=== PATIENT | male | born 1980 | race Caucasian/White ===

== ENCOUNTER 2017-09-22 12:38 | Inpatient (IN) ==
--- NOTE | 2017-09-22 13:06 | Emergency Department Note ---
Disposition Clinical Impression: Suicidal ideation Disposition: Admitted As Inpatient Condition: Fair Referrals: NONE,PCP [Primary Care Provider] - Forms: ED Satisfaction Letter Time of Disposition: 15:00 Psych HPI - General Chief Complaint: ED Psychiatric Symptoms Stated Complaint: SI Time Seen by Provider: 09/22/17 12:50 Source: patient Mode of arrival: ambulatory Nursing Notes Reviewed: Yes Vital Signs Reviewed: Yes - History of Present Illness Pt complaint: suicidal ideation, feels depressed Onset (ago): day(s) Duration: constant History of similar episodes: Yes Improves with: none Worsens with: none Context: not taking psychiatric medications Alleged intoxication: No Associated Psychiatric Symptoms: depression, suicidal ideation Associated symptoms: Reports: denies other symptoms Traumatic symptoms: denies traumatic injury Treatments prior to arrival: none Self harm or harm to others: admits thoughts of self harm, has plan - Related Data Home Medications Medication Instructions Recorded Confirmed Valsartan/Hydrochlorothiazide 1 tab PO DAILY 06/26/17 06/26/17 [Diovan Hct 160-25 mg Tablet] Previous Rx's Medication Instructions Recorded FLUoxetine HCl [Prozac] 20 mg PO DAILY #30 06/28/17 hydrOXYzine pamoate [HydrOXYzine 25 mg PO TID PRN #30 06/28/17 Pamoate] traZODone [TraZODone] 50 mg PO HS PRN #30 tab 06/28/17 Allergies Allergy/AdvReac Type Severity Reaction Status Date / Time No Known Allergies Allergy Verified 06/26/17 01:05 All systems ED: reviewed and negative except as stated. Constitutional: Reports: as per HPI Eyes: Reports: as per HPI ENT ED: Reports: as per HPI Cardiovascular: Reports: as per HPI Respiratory: Reports: as per HPI Gastrointestinal: Reports: as per HPI Genitourinary: Reports: as per HPI Musculoskeletal: Reports: as per HPI Integumentary: Reports: as per HPI Neurological: Reports: as per HPI Psychiatric: Reports: depression, suicidal thoughts Endocrine: Reports: as per HPI Hematological/Lymphatic: Reports: as per HPI Allergic/Immunologic: Reports: as per HPI Past Medical History - Past Medical History Medical history: Reports: hypertension Surgical history: Reports: no surgical history Psychiatric history: Reports: anxiety, depression - Social History Smoking Status: Current every day smoker Smokeless Tobacco Status: No Alcohol use: Reports: none Drug use: Reports: opiates, IV Drug Use Physical Exam tearful - General Limitations: no limitations General appearance: alert, in no apparent distress, anxious - Head Head exam: atraumatic - Eye Eye exam: Present: normal appearance - ENT ENT exam: normal exam - Neck Neck exam: Present: normal inspection, full ROM - Chest Chest inspection: Present: normal inspection, symmetric chest wall rise - Respiratory Respiratory exam: Present: normal lung sounds bilaterally - Cardiovascular Cardiovascular exam: Present: regular rate, normal rhythm, normal heart sounds - Rectal Exam Rectal exam: Present: deferred - Extremities Exam Extremities exam: Present: normal inspection - Neurological Exam Neurological exam: Present: alert, oriented X3, CN II-XII intact - Psychiatric Psychiatric exam: Present: anxious - Skin Skin exam: Present: warm, dry, intact Course Course Narrative: Patient presents feeling depressed and suicidal. I will attempt to clear him medically for behavioral evaluation - Reevaluation(s) Reevaluation #1: 1A called @ 13:57 Vital Signs Temperature 97 F L 09/22/17 12:41 Pulse Rate 93 09/22/17 12:41 Respiratory Rate 18 09/22/17 12:41 Blood Pressure 179/135 09/22/17 12:41 O2 Sat by Pulse Oximetry 98 09/22/17 12:41 Temperature 97 F L 09/22/17 12:41 Pulse Rate 93 09/22/17 12:41 Respiratory Rate 18 09/22/17 12:41 Blood Pressure 179/135 09/22/17 12:41 O2 Sat by Pulse Oximetry 98 09/22/17 12:41 Oxygen Delivery Oxygen Delivery Room Air Psych - Lab Data Lab results reviewed: Yes I reviewed the patient's lab results. Result diagrams: 09/22/17 13:17 09/22/17 13:17 Lab Results 09/22/17 09/22/17 09/22/17 Range/Units 13:17 13:17 13:23 WBC 8.7 (4.3-11.1) K/mcL RBC 5.57 H (4.19-5.50) M/mcL Hgb 15.2 (12.9-16.9) g/dL Hct 47.1 (37.5-50.1) % MCV 84.6 (83.0-100.0) fL MCH 27.3 L (28.0-33.3) pg MCHC 32.3 (31.6-35.5) g/dL RDW 13.8 (11.5-14.5) % Plt Count 296 (140-400) K/mcL MPV 9.1 L (9.4-12.4) fL Immature Gran % 0.3 (0-4) % Seg Neutrophils % 68.2 % Lymphocytes % 24.3 % Monocytes % 5.7 % Eosinophils % 0.7 % Basophils % 0.8 % Neutrophils # 5.9 (1.6-8.9) K/mcL Lymphocytes # 2.1 (0.6-4.6) K/mcL Monocytes # 0.5 (0.0-1.3) K/mcL Eosinophils # 0.1 (0.0-0.6) K/mcL Basophils # 0.1 (0.0-0.2) K/mcL Sodium 139 (136-145) mEq/L Potassium 4.1 (3.5-4.5) mEq/L Chloride 105 (98-109) mEq/L Carbon Dioxide 26 (19-29) mEq/L BUN 7 L (8-26) mg/dL Creatinine 0.82 (0.72-1.25) mg/dL Est GFR ( Amer) > 60 (> 60) Est GFR (Non-Af Amer) > 60 (> 60) BUN/Creatinine Ratio 9 (6-26) Glucose 123 H (70-99) mg/dL Calculated Osmolality 287 (280-300) Calcium 9.1 (8.6-10.8) mg/dL Total Bilirubin 0.4 (0.2-1.2) mg/dL AST 28 (5-34) Units/L ALT 43 (0-55) Units/L Alkaline Phosphatase 95 (38-126) Units/L Serum Total Protein 8.2 (6.0-8.3) g/dL Albumin 3.6 (3.5-5.0) g/dL Globulin 4.6 H (2.4-3.5) g/dL Albumin/Globulin Ratio 0.8 L (1.1-2.2) Salicylates < 5.0 L (15-30) mg/dL Urine Opiates Screen Positive H (Muonze=819) ng/mL Acetaminophen < 1.0 L (10-30) mcg/mL Ur Barbiturates Screen Negative (Pycski=317) ng/mL Ur Phencyclidine Scrn Negative (Cutoff=25) ng/mL Ur Amphetamines Screen Positive H (Pniuip=5451) ng/mL U Benzodiazepines Scrn Negative (Ozmnjg=623) ng/mL Urine Cocaine Screen Positive H (Cutoff= 300) ng/mL U Marijuana (THC) Screen Negative (Cutoff = 50) ng/mL Ethyl Alcohol < 10 (0-10) mg/dL Psychiatric Medical Clearance - Medical Clearance Checklist Medical History: Suicidal ideation (Acute) Depression (Acute) Heroin overdose (Inactive) No Social History Section defined Current Vitals: Last Vital Signs Temp 97 F L 09/22/17 12:41 Pulse 93 09/22/17 12:41 Resp 18 09/22/17 12:41 BP 179/135 09/22/17 12:41 Pulse Ox 98 09/22/17 12:41 Psychiatric Lab Panel: Drug Levels and Toxicity 09/22/17 09/22/17 13:17 13:23 Urine Opiates Screen Positive H Acetaminophen < 1.0 L Ur Barbiturates Screen Negative Ur Phencyclidine Scrn Negative Ur Amphetamines Screen Positive H U Benzodiazepines Scrn Negative Urine Cocaine Screen Positive H U Marijuana (THC) Screen Negative Ethyl Alcohol < 10 Abnormal Labs: Abnormal lab results RBC 5.57 M/mcL (4.19-5.50) H 09/22/17 13:17 MCH 27.3 pg (28.0-33.3) L 09/22/17 13:17 MPV 9.1 fL (9.4-12.4) L 09/22/17 13:17 BUN 7 mg/dL (8-26) L 09/22/17 13:17 Glucose 123 mg/dL (70-99) H 09/22/17 13:17 Globulin 4.6 g/dL (2.4-3.5) H 09/22/17 13:17 Albumin/Globulin Ratio 0.8 (1.1-2.2) L 09/22/17 13:17 Salicylates < 5.0 mg/dL (15-30) L 09/22/17 13:17 Urine Opiates Screen Positive ng/mL (Khqnpy=240) H 09/22/17 13:23 Acetaminophen < 1.0 mcg/mL (10-30) L 09/22/17 13:17 Ur Amphetamines Screen Positive ng/mL (Dfczty=6796) H 09/22/17 13:23 Urine Cocaine Screen Positive ng/mL (Cutoff= 300) H 09/22/17 13:23 Statement of Medical Clearance: I have evaluated the patient, reviewed diagnostic information, and certify that the patient's medical condition is sufficiently stable that transfer to the psychiatric unit does not pose a significant risk of deterioration.
[2017-09-22 13:25] LABS: Basophils # 0.1 K/mcL (0.0-0.2); Basophils % 0.8 %; Eosinophils # 0.1 K/mcL (0.0-0.6); Eosinophils % 0.7 %; Hematocrit 47.1 % (37.5-50.1); Hemoglobin 15.2 g/dL (12.9-16.9); Immature Granulocytes % 0.3 % (0-4); Lymphocytes # 2.1 K/mcL (0.6-4.6); Lymphocytes % 24.3 %; Mean Corpuscular HGB Conc 32.3 g/dL (31.6-35.5); Mean Corpuscular Hemoglobin 27.3 pg (28.0-33.3); Mean Corpuscular Volume 84.6 fL (83.0-100.0); Mean Platelet Volume 9.1 fL (9.4-12.4); Monocytes # 0.5 K/mcL (0.0-1.3); Monocytes % 5.7 %; Neutrophils # 5.9 K/mcL (1.6-8.9); Platelet Count 296 K/mcL (140-400); Red Blood Count 5.57 M/mcL (4.19-5.50); Red Cell Distribution Width 13.8 % (11.5-14.5); Segmented Neutrophils % 68.2 %
[2017-09-22 13:39] LABS: Alanine Aminotransferase 43 Units/L (0-55); Albumin 3.6 g/dL (3.5-5.0); Albumin/Globulin Ratio 0.8 (1.1-2.2); Alkaline Phosphatase 95 Units/L (38-126); Aspartate Amino Transferase 28 Units/L (5-34); BUN/Creatinine Ratio 9 (6-26); Bilirubin,Total 0.4 mg/dL (0.2-1.2); Blood Urea Nitrogen 7 mg/dL (8-26); Calcium 9.1 mg/dL (8.6-10.8); Carbon Dioxide 26 mEq/L (19-29); Chloride 105 mEq/L (98-109); Globulin 4.6 g/dL (2.4-3.5); Glucose 123 mg/dL (70-99); Osmolality,Calculated 287 (280-300); Potassium 4.1 mEq/L (3.5-4.5); Sodium 139 mEq/L (136-145); Total Protein 8.2 g/dL (6.0-8.3); eGFR For African Americans > 60 (> 60); eGFR For Non-African Americans > 60 (> 60)
[2017-09-22 13:40] LABS: Amphetamine Screen,Urine Positive ng/mL (Cutoff=1000); Barbiturate Screen,Urine Negative ng/mL (Cutoff=200); Benzodiazepines Screen,Urine Negative ng/mL (Cutoff=200); Cannabinoid Screen,Urine Negative ng/mL (Cutoff = 50); Cocaine Screen,Urine Positive ng/mL (Cutoff= 300); Opiate Screen,Urine Positive ng/mL (Cutoff=300); Phencyclidine Screen,Urine Negative ng/mL (Cutoff=25)
[2017-09-22 13:40] LABS: Acetaminophen < 1.0 mcg/mL (10-30); Ethanol < 10 mg/dL (0-10); Salicylate < 5.0 mg/dL (15-30)
[2017-09-22] MEDS ORDERED: *HR* LORazepam 1 MG TABLET PO PRN (15:27)
[2017-09-22] MEDS ORDERED: MOM Conc 10 ML UD.LIQ PO PRN (15:27)
[2017-09-22] MEDS ORDERED: Ibuprofen 400 MG TABLET PO PRN (15:27)
[2017-09-22] MEDS ORDERED: *HR* LORazepam 2 MG/ML VIAL IM PRN (15:27)
[2017-09-22] MEDS ORDERED: Nicotine 2 MG GUM BC PRN (15:27)
[2017-09-22] MEDS ORDERED: Haloperidol Lactate 5 MG/ML VIAL IM PRN (15:27)
[2017-09-22] MEDS ORDERED: Mag Hydrox/Al Hydrox/Simeth 30 ML UDC PO PRN (15:27)
[2017-09-22] MEDS: hydrOXYzine pamoate 25 MG CAPSULE PO PRN (21:04)
[2017-09-22] MEDS: traZODone 50 MG TABLET PO PRN (21:05)
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
[2017-09-23] MEDS: traZODone 50 MG TABLET PO PRN (21:22)
[2017-09-24] MEDS: FLUoxetine 20 MG CAPSULE PO SCH (10:05)
[2017-09-24] MEDS: ARIPiprazole 2 MG TABLET PO SCH (10:05)
--- NOTE | 2017-09-24 16:50 | Psychiatry Progress Note ---
Date of Encounter: 09/24/17 Time of Encounter: 13:00 Subjective Interval history: Ignacio is seen today for follow-up of his mood and anxiety symptoms. He reports that he is still hearing voices telling him to hurt himself but he reports that the voices are little bit better. He did take a dose of Haldol last night and he felt that that was helpful for him. Discussed with patient that the Abilify may also work for auditory hallucinations and he got his first dose about this morning. He is tolerating the Prozac. He is not sure if the BuSpar is helping her not yet. He still reports generalized nervousness and difficulty interacting in social situations but he is trying to attend some groups. Review of Systems Psychiatric: Reports: depression, anxiety, abnormal sleep pattern, suicidal ideation, anhedonia, hopelessness, irritability, mood swings, panic attacks Objective: Exam Patient orientation: Yes Person, Yes Time, Yes Place Level of alertness: Alert Patient appearance: Unkempt, Disheveled Behavior: cooperative, anxious Psychomotor activity: Normal Eye contact: Minimal Contact Mood description: Depressed Affect description: tearful, dysphoric Speech pattern: Normal rate, Normal rhythm, Normal tone Speech volume: Normal Thought process: Intact, Logical Thought content: Yes Suicidal ideation, No Homicidal ideation Perceptual disturbances: No Reacting to internal stimuli, Yes Auditory hallucinations Judgment: Limited Insight: Minimal Results - Vital Signs Vital Signs: Temp Pulse Resp BP Pulse Ox 97.8 F 80 18 143/98 98 09/24/17 09:00 09/24/17 09:00 09/24/17 09:00 09/24/17 09:00 09/22/17 12:41 Assessment and Plan (1) Depression Current visit: No Status: Acute Plan: Continue hospitalization, Close observation, Suicide Precautions per unit protocol, Encourage participation in unit milieu, Group Therapy, Monitor sleep, Monitor appetite Additional Plan: Continue current meds. Encouraged continued group attendance. Risks, benefits, side effects, alternatives discussed w/pt: Yes Patient agreeable to treatment: Yes Qualifiers: Depression Type: major depressive disorder Major depression recurrence: recurrent Active/Remission status: currently active Major depression episode severity: severe Psychotic features: without psychotic features Qualified Code(s): F33.2 - Major depressive disorder, recurrent severe without psychotic features (2) Anxiety Current visit: Yes Status: Acute Plan: Continue hospitalization, Close observation, Suicide Precautions per unit protocol, Encourage participation in unit milieu, Group Therapy, Monitor sleep, Monitor appetite Additional Plan: Continue BuSpar. We may increase depending on patient response. Consult Discharge Plan - Plan Referrals: Ioana Fair [Outside] - 09/29/17 2:00 pm (The above appointment is with Sharyn Anastacio. When you come to your first appointment, you will be completing paperwork, meeting with a counselor, and developing a treatment plan. You will receive follow- up appointments for on-going services , which could include community support, mental health and substance abuse counseling, groups/partial hospitalization programming, medication assisted treatment, and psychiatric medication management. Please bring the following with you to your first visit to the clinic: 1) proof of household income (two consecutive pay stubs, social security award letter, bank statement, statement letter from [facility], child support statement, IRS 1040 or W2 form, or a statement from the person who financially supports you stating they help provide for your basic needs), 2) proof of residency (drivers license, a piece of mail showing your address, a statement from person you live with verifying you live at their address), 3) your social security card, 4) photo ID, 5) your insurance card (if you have commercial insurance you must call to obtain a prior authorization number before you arrive to your first appointment) and 6) if you do not have insurance but have applied for Medicaid, please bring verification you have applied. The above appointment(s) reflects first availability. You may contact the office regularly to check for cancellations that may allow you to be seen sooner.)
[2017-09-24] MEDS: traZODone 50 MG TABLET PO PRN (20:46)
[2017-09-25] MEDS: FLUoxetine 20 MG CAPSULE PO SCH (09:22)
[2017-09-25] MEDS: ARIPiprazole 2 MG TABLET PO SCH (09:22)
[2017-09-25] MEDS ORDERED: traZODone 50 MG TABLET PO PRN (09:27)
--- NOTE | 2017-09-25 11:11 | Psychiatry Progress Note ---
Date of Encounter: 09/25/17 Time of Encounter: 08:15 Subjective Interval history: Patient is seen today for follow-up. He states that he is still struggling with mood symptoms and feels depressed. Feeling hopeless and worthless at times. He states he has not really been sleeping well. At home sometimes he takes 200 of trazodone at bedtime. The 50 mg is not sufficient for his sleep. The hospital. He continues to report intermittent suicidal ideations. He has been to some groups but spends much of his time withdrawn to his room in bed. Encourage patient to shower and interact with peers and staff as well as attending groups. Review of Systems Psychiatric: Reports: depression, anxiety, abnormal sleep pattern, suicidal ideation, anhedonia, hopelessness, irritability Objective: Exam Patient orientation: Yes Person, Yes Time, Yes Place Level of alertness: Alert Patient appearance: Unkempt, Disheveled Behavior: calm, cooperative Psychomotor activity: Normal Eye contact: Diverts Contact Mood description: Depressed Affect description: flat, tearful Speech pattern: Normal rate, Normal rhythm, Normal tone Speech volume: Normal Thought process: Intact Thought content: Yes Suicidal ideation Perceptual disturbances: No Reacting to internal stimuli, Yes Auditory hallucinations Judgment: Limited Insight: Minimal Results - Vital Signs Vital Signs: Temp Pulse Resp BP Pulse Ox 97.2 F L 64 18 141/107 98 09/24/17 21:00 09/24/17 21:00 09/24/17 21:00 09/24/17 21:00 09/22/17 12:41 Assessment and Plan (1) Depression Current visit: No Status: Acute Plan: Continue hospitalization, Close observation, Suicide Precautions per unit protocol, Encourage participation in unit milieu, Group Therapy, Monitor sleep, Monitor appetite Additional Plan: We will increase Abilify slightly. Encourage appropriate ADLs and participation in group activities. Risks, benefits, side effects, alternatives discussed w/pt: Yes Patient agreeable to treatment: Yes Qualifiers: Depression Type: major depressive disorder Major depression recurrence: recurrent Active/Remission status: currently active Major depression episode severity: severe Psychotic features: without psychotic features Qualified Code(s): F33.2 - Major depressive disorder, recurrent severe without psychotic features (2) Anxiety Current visit: Yes Status: Acute Plan: Continue hospitalization, Close observation, Suicide Precautions per unit protocol, Encourage participation in unit milieu, Group Therapy, Monitor sleep, Monitor appetite Additional Plan: We will schedule BuSpar. Continue to encourage positive coping strategies. Consult Discharge Plan - Plan Referrals: Ioana Rand [facility] [place] [Outside] - 09/29/17 2:00 pm (The above appointment is with Sharyn Chaves. When you come to your first appointment, you will be completing paperwork, meeting with a counselor, and developing a treatment plan. You will receive follow- up appointments for on-going services , which could include community support, mental health and substance abuse counseling, groups/partial hospitalization programming, medication assisted treatment, and psychiatric medication management. Please bring the following with you to your first visit to the clinic: 1) proof of household income (two consecutive pay stubs, social security award letter, bank statement, statement letter from [facility], child support statement, IRS 1040 or W2 form, or a statement from the person who financially supports you stating they help provide for your basic needs), 2) proof of residency (drivers license, a piece of mail showing your address, a statement from person you live with verifying you live at their address), 3) your social security card, 4) photo ID, 5) your insurance card (if you have commercial insurance you must call to obtain a prior authorization number before you arrive to your first appointment) and 6) if you do not have insurance but have applied for Medicaid, please bring verification you have applied. The above appointment(s) reflects first availability. You may contact the office regularly to check for cancellations that may allow you to be seen sooner.)
[2017-09-25] MEDS: hydrOXYzine pamoate 25 MG CAPSULE PO PRN ×2 (14:40→21:07)
[2017-09-26] MEDS: FLUoxetine 20 MG CAPSULE PO SCH (09:00)
[2017-09-26] MEDS ORDERED: ARIPiprazole 5 MG TABLET PO SCH (09:00)
[2017-09-26 09:12] VITALS: BP 143/109
--- NOTE | 2017-09-26 11:23 | Discharge Summary ---
Date of Encounter: 09/26/17 Time of Encounter: 11:05 Diagnosis - Discharge Diagnosis (1) Depression Status: Acute Qualifiers: Depression Type: major depressive disorder Major depression recurrence: recurrent Active/Remission status: currently active Major depression episode severity: severe Psychotic features: without psychotic features Qualified Code(s): F33.2 - Major depressive disorder, recurrent severe without psychotic features (2) Anxiety Status: Acute Medications - Discharge Medications Prescriptions: ARIPiprazole [Abilify] 5 mg PO DAILY #30 tablet Buspirone HCl [Buspar] 7.5 mg PO BID #60 tablet FLUoxetine HCl [Prozac] 20 mg PO DAILY #30 capsule hydrOXYzine pamoate [HydrOXYzine Pamoate] 25 mg PO TID PRN #90 capsule PRN Reason: Anxiety traZODone [TraZODone] 200 mg PO HS PRN #60 tablet PRN Reason: Insomnia ARIPiprazole [Abilify] 5 mg PO DAILY #30 tablet 09/26/17 [Rx] Buspirone HCl [Buspar] 7.5 mg PO BID #60 tablet 09/26/17 [Rx] FLUoxetine HCl [Prozac] 20 mg PO DAILY #30 capsule 09/26/17 [Rx] hydrOXYzine pamoate [HydrOXYzine Pamoate] 25 mg PO TID PRN #90 capsule 09/26/17 [Rx] traZODone [TraZODone] 200 mg PO HS PRN #60 tablet 09/26/17 [Rx] 3 Allergy/AdvReac Type Severity Reaction Status Date / Time No Known Allergies Allergy Verified 06/26/17 01:05 Provider Date of admission: 09/22/17 15:04 Primary care physician: PCP NONE Discharging clinician: Leland Radford Assessment and Plan - Patient/Caregiver Discharge Instructions Activity: resume usual activities as tolerated Diet: regular diet - Follow up Plan Follow up with: Ioana Fair [Outside] - 09/29/17 2:00 pm (The above appointment is with Sharyn Chaves. When you come to your first appointment, you will be completing paperwork, meeting with a counselor, and developing a treatment plan. You will receive follow- up appointments for on-going services , which could include community support, mental health and substance abuse counseling, groups/partial hospitalization programming, medication assisted treatment, and psychiatric medication management. Please bring the following with you to your first visit to the clinic: 1) proof of household income (two consecutive pay stubs, social security award letter, bank statement, statement letter from [facility], child support statement, IRS 1040 or W2 form, or a statement from the person who financially supports you stating they help provide for your basic needs), 2) proof of residency (drivers license, a piece of mail showing your address, a statement from person you live with verifying you live at their address), 3) your social security card, 4) photo ID, 5) your insurance card (if you have commercial insurance you must call to obtain a prior authorization number before you arrive to your first appointment) and 6) if you do not have insurance but have applied for Medicaid, please bring verification you have applied. The above appointment(s) reflects first availability. You may contact the office regularly to check for cancellations that may allow you to be seen sooner.) Overall status at discharge: Stable Disposition: Home, Self-Care Hospital Course Hospital course: Mr. Sequeira is a 37 year old male Referred for hospitalization for depression and suicidal ideations. Patient was admitted and after reviewing the symptom diagnoses and treatment planning spending the risk benefit side effects alternatives to treatment consequences of no treatment getting informed consent from the patient patient was treated with Prozac 20 mg daily Abilify 5 mg daily for his depression and Vistaril 25 mg 3 times a day for his anxiety trazodone 200 mg at bedtime for insomnia. Patient was encouraged to attend an participant in groups and activities on the unit which included supportive therapy psychoeducational cognitive restructuring stress management groups etc. With above intervention patient started to notice improvement in his mood as hopeless and self-perceptions and suicidal ideation subsided he became more cheerful and happy. He was future oriented and positive. He was denying any suicidal or homicidal ideation at the time of discharge and was able to verbalize a good safety plan. Overall patient's condition on discharge was stable. He tolerated medications fairly well and did not report any side effects. - Time Spent with Patient Total time spent providing and/or coordinating discharge services: Quality - Multiple Antipsychotics Patient discharged on 2 or more antipsychotic medications: No Procedures - Procedures Procedures: Medication Management, Crisis Stabilization, Supportive Therapy, Group Therapy, Psychoeducational Therapy Mental Status Exam - Mental Status Exam Patient orientation: Yes Person, Yes Time, Yes Place Level of alertness: Alert Patient appearance: Appropriate, Well Groomed Behavior: calm, cooperative Psychomotor activity: Normal Eye contact: Maintains Eye Contact Mood description: Euthymic/stable Affect description: congruent with mood, full range Speech pattern: Normal rate, Normal rhythm, Normal tone Speech Volume: Normal Thought process: Linear, Goal Oriented Thought Content: No Suicidal ideation, No Homicidal ideation, No Overt delusions Perceptual Disturbances: No Auditory hallucinations, No Visual hallucinations Judgment: Limited Insight: Partial
== END 2017-09-26 14:50 | disposition home or self-care (01) | DRG 751 ==
LOC: EMEROO 12:38 → SUATTDRO 15:04 → 1ANU 15:04
PROVIDERS: ADMIT Student in an Organized Health Care Education/Training Program; ATTEND Psychiatry & Neurology Psychiatry